=== PATIENT | male | born 2005 | race African-American/Black ===

== ENCOUNTER 2023-04-16 00:18 | Emergency (ER) | payer OTHER, SELFPAY ==
[2023-04-16 00:23] VITALS: BP 161/79; PULSE 68; RESP 16; TEMP 36.7; O2SAT 99; BMI 26.1
--- NOTE | 2023-04-16 00:53 | ED.EPISTAXI1 ---
HPI - Epistaxis General Chief Complaint: Epistaxis Stated Complaint: NOSE BLEED Time Seen by Provider: 04/16/23 00:41 Source: patient Mode of arrival: walk-in Limitations: no limitations History of Present Illness HPI Narrative: nose bleed. started about 8 hours ago. was seen at [facility] and Rhino rocket placed. Went home and vomited and it came out. he then pushed it back in and now presents here stating he can still feel the blood in the back of his throat. Past history of nose bleeds for years. less episodes in recent years but would usually stop bleeding on their own. No recent injuries Location: Yes right nares Related Data Allergies Allergy/AdvReac Type Severity Reaction Status Date / Time No Known Drug Allergies Allergy Verified 04/16/23 00:26 Review of Systems ROS Status of ROS 10 or more systems reviewed and unremarkable except as noted in history and below [facility] Social History Smoking status: Current some day smoker Exam Constitutional Vital Signs, click to edit/add: Last Vital Signs Temp 98.1 F 04/16/23 00:23 Pulse 68 04/16/23 00:23 Resp 16 04/16/23 00:23 BP 161/79 H 04/16/23 00:23 Pulse Ox 99 04/16/23 00:23 O2 Del Method Room Air 04/16/23 00:23 Common normals: no apparent distress, average body habitus, oriented x3, no limitations, healthy appearing, alert and well nourished [facility] Other: rhino rocket right nares Eye Common normals: EOMs intact bilaterally and conjunctivae normal Respiratory Common normals: normal respiratory effort, no retractions, no use of accessory muscles and clear to auscultation bilaterally Cardio Common normals: regular rate, regular rhythm, S1 normal heart sound and S2 normal heart sound Extremity Common normals: normal to inspection and full ROM Neuro Common normals: oriented x3, CN's II-XII intact bilaterally and moves all extremities Psych Appearance: grossly normal Course Vital Signs Vital signs: Vital Signs Temperature 98.1 F 04/16/23 00:23 Pulse Rate 68 04/16/23 00:23 Respiratory Rate 16 04/16/23 00:23 Blood Pressure 161/79 H 04/16/23 00:23 Pulse Oximetry 99 04/16/23 00:23 Oxygen Delivery Method Room Air 04/16/23 00:23 Temperature 98.1 F 04/16/23 00:23 Pulse Rate 68 04/16/23 00:23 Respiratory Rate 16 04/16/23 00:23 Blood Pressure 161/79 H 04/16/23 00:23 Pulse Oximetry 99 04/16/23 00:23 Oxygen Delivery Method Room Air 04/16/23 00:23 MDM - Epistaxis MDM Narrative Medical decision making narrative: patient seen at [facility] ER for nose bleed. Rhino rocket placed. States it came out at home when he vomited and now he presents here. His rocket was removed and replaced with a new Rhino Rocket. He tolerated the procedure well. Discharged home with Amoxicillin and advised to have packing removed in 1-2 days Discharge Plan Discharge Chief Complaint: Epistaxis Clinical Impression: Epistaxis Patient Disposition: Home, Self-Care Instructions: Nosebleed (ED) Additional Instructions: have packing removed in 1-2 days Stand Alone Forms: Portal Instructions Referrals: Physician,Non-Staff, MD [Primary Care Provider] - 1 week Procedures ED Procedure Instructions Procedures Procedures: rhino rocket 5.5 placed right nostril. Patient tolerated well
[2023-04-16] MEDS: AMOXICILLIN 500 MG CAPSULE 1000 MG PO (01:58)
== END 2023-04-16 02:00 | disposition home or self-care (01) ==
PROVIDERS: Emergency Provider Internal Medicine
DX: R04.0 Epistaxis (principal); F17.210 Nicotine dependence, cigarettes, uncomplicated
CPT/HCPCS: 30901; 99283